=== PATIENT | male | born 1995 | race African-American/Black ===

== ENCOUNTER 2021-06-15 01:05 | Emergency (ER) | payer SELFPAY ==
[2021-06-15 01:10] VITALS: BP 138/107; PULSE 92; RESP 15; TEMP 36.4; O2SAT 97
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
--- NOTE | 2021-06-15 01:15 | DI.CT_ITS ---
Exam(s) CT HEAD CERVICAL SPINE WO CT FACIAL WO EXAM: CT HEAD CERVICAL SPINE WO COMPARISON: CT CT FACIAL WO from 06/15/[address] FACIAL WO from 06/15/2021 FINDINGS: CT examination of the cervical spine was performed without contrast administration. There is no evidence of acute cervical spine fracture or dislocation. Intervertebral disc spaces are well maintained. Tracheolaryngeal structures appear intact. No cervical mass or adenopathy. Noncontrast cranial CT was performed. Ventricular system is normal in appearance. No evidence of acute intracranial hemorrhage, mass effect, or midline shift. No calvarial fracture. Facial CT was also performed without contrast administration. There is minimally displaced anterior blowout fracture of the right orbit and fracture of the inferior aspect of the lamina papyracea see i s noted as well. Mild mucoperiosteal thickening is noted in the paranasal sinuses, presumably chroni c. No additional fracture seen. The temporomandibular joints are normally aligned. IMPRESSION: No evidence of acute cervical spine injury. No evidence of acute intracranial injury. Minimally displaced anteromedial right orbital blowout fracture with associated mildly displaced frac ture of the lamina papyracea see a period no additional facial fracture seen. The orbital contents a ppear well maintained. No retro bulbar hemorrhage or entrapment of the extraocular musculature. RADIATION DOSE DELIVERED: 1,289.87mGy.cm Total DLP 1,289.87mGy.cm Total DLP 18.59mGy CTDIvol DATA REPOSITORY: All CT scans at this facility are submitted to the National Radiology Data Registry (NRDR) Dose Index Registry (DIR) with the [employer] (ACR). RADIATION OPTIMIZATION: All CT scans at this facility use at least one of these dose optimization te chniques: automated exposure control; mA and/or kV adjustment per patient size (includes targeted exa ms where dose is matched to clinical indication); or iterative reconstruction.
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
== END 2021-06-15 07:31 | disposition home or self-care (01) ==
LOC: ER 07:31
PROVIDERS: Emergency Provider Emergency Medicine
DX: S02.31XA Fracture of orbital floor, right side, initial encounter for closed fracture (principal); S02.831A Fracture of medial orbital wall, right side, initial encounter for closed fracture; M25.561 Pain in right knee; M54.50 Low back pain, unspecified; M54.2 Cervicalgia; Y04.0XXA Assault by unarmed brawl or fight, initial encounter
CPT/HCPCS: 73562; 99284; 70450; 70486; 71046; 72125